=== PATIENT | female | born 1990 | race Caucasian/White ===

== ENCOUNTER 2016-11-02 02:09 | Emergency (ER) | payer BC ==
[~2016-11-02] VITALS: Ht 162.6 cm; Wt 68.2 kg
[~2016-11-02 02:09] MED LIST: BIRTH CONTROL; DESYREL 50MG50 MG PO; NIRAVAM0.25 MG PO; PROZAC 10MG10 MG PO
[2016-11-02 02:11] VITALS: TEMP 98.3
[2016-11-02 03:06] LABS: BASO % 0.6 % (0.0-2.0); EOS # 0.1 (0.0-0.7); GRAN % 60.6 % (42.2-75.2); HEMATOCRIT 43.5 % (37.0-47.0); HEMOGLOBIN 15.2 g/dl (12.5-16.0); LYMPH # 2.2 (1.2-3.4); LYMPH % 32.9 % (20.0-51.0); MEAN CELL VOLUME 90 fl (80.0-100.0); MEAN CORPUSCULAR HEMOGLOBIN 32 pg (27.0-31.0); MEAN CORPUSCULAR HGB CONC 35 g/dl (33.0-37.0); MEAN PLATELET VOLUME 10.4 fl (7.4-10.4); MONO # 0.3 (0.1-0.6); MONO % 4.6 % (1.7-9.3); PLATELET COUNT 190 K/mm3 (130-400); RED BLOOD COUNT 4.81 M/mm3 (4.10-5.30); WHITE BLOOD COUNT 6.7 K/mm3 (4.8-10.8)
[2016-11-02 03:18] LABS: ADJUSTED CALCIUM 8.8 mg/dL (8.4-10.2); ALANINE AMINOTRANSFERASE 24 U/L (9-52); ALBUMIN 3.9 gm/dL (3.5-5.0); ALKALINE PHOSPHATASE 65 U/L (50-136); ANION GAP 12 mmol/L (7-16); BILIRUBIN,TOTAL 0.7 mg/dL (0.0-1.0); BLOOD UREA NITROGEN 5 mg/dL (7-17); CALCIUM 8.7 mg/dL (8.4-10.2); CARBON DIOXIDE 22 mmol/L (22-30); CHLORIDE 106 mmol/L (98-107); CREATININE, serum 0.73 mg/dL (0.52-1.25); GLUCOSE 86 mg/dL (74-106); LIPASE 15 U/L (23-300); SODIUM 140 mmol/L (137-145); TOTAL PROTEIN 6.3 gm/dL (6.4-8.2)
[2016-11-02 03:32] LABS: ACETAMINOPHEN < 10 ug/mL (10-30); SALICYLATE < 1.0 mg/dL
[2016-11-02 03:41] LABS: PH 6 (5-8); SQUAMOUS EPITHELIAL 0-2 /hpf; URINE APPEARANCE Clear; URINE BACTERIA None Seen /hpf; URINE BILIRUBIN Negative (NEGATIVE); URINE BLOOD Negative (NEGATIVE); URINE COLOR Yellow; URINE GLUCOSE Negative (NEGATIVE); URINE KETONE Negative (NEGATIVE); URINE RBC 0-2 /hpf; URINE UROBILINOGEN Negative (NEGATIVE); URINE WBC 0-2 /hpf
[2016-11-02 03:51] LABS: AMPHETAMINE URINE NEGATIVE; BARBITURATES URINE NEGATIVE; BENZODIAZEPINES URINE POSITIVE; BUPRENORPHINE URINE NEGATIVE; METHADONE URINE NEGATIVE; OPIATES URINE NEGATIVE; OXYCODONE URINE NEGATIVE; PHENCYCLIDINE URINE NEGATIVE; PROPOXYPHENE URINE NEGATIVE; THC CANNABINOIDS URINE NEGATIVE
[2016-11-02 13:34] VITALS: BP 115/53; PULSE 87
== END 2016-11-02 14:55 | disposition home or self-care (01) ==
LOC: COL.ER 02:09
PROVIDERS: Emergency Medicine
DX: F32.9 Major depressive disorder, single episode, unspecified (principal); F13.10 Sedative, hypnotic or anxiolytic abuse, uncomplicated; S51.812A Laceration without foreign body of left forearm, initial encounter; S11.91XA Laceration without foreign body of unspecified part of neck, initial encounter; F41.9 Anxiety disorder, unspecified; F50.9 Eating disorder, unspecified; Z23 Encounter for immunization; X78.9XXA Intentional self-harm by unspecified sharp object, initial encounter

== ENCOUNTER 2017-08-24 12:46 | Inpatient (IN) | payer BC, MEDICAID ==
[~2017-08-24] VITALS: Ht 165.1 cm; Wt 86.4 kg
[2017-08-24] VITALS (34 sets, daily range): BP systolic 116–1353; BP diastolic 55–98; PULSE 78–117; TEMP 97.5–97.8
[2017-08-24] MEDS ORDERED: PRENATAL (13:15)
[2017-08-24] MEDS ORDERED: TUMS500 MG (13:16)
[2017-08-24] MEDS ORDERED: TYLENOL PM EXTR1 TA1 PO (13:16)
[2017-08-24 16:48] LABS: HEMOGLOBIN 12.8 g/dl (12.5-16.0); MEAN CELL VOLUME 91 fl (80.0-100.0); MEAN CORPUSCULAR HEMOGLOBIN 32 pg (27.0-31.0); MEAN CORPUSCULAR HGB CONC 35 g/dl (33.0-37.0); MEAN PLATELET VOLUME 11.7 fl (7.4-10.4); PLATELET COUNT 142 K/mm3 (130-400); RED BLOOD COUNT 4.02 M/mm3 (4.10-5.30)
[2017-08-24 16:50] LABS: HEMATOCRIT 36.4 % (37.0-47.0)
[2017-08-24 18:15] LABS: BAND 1 % (0-10); LYMPHOCYTE 19 % (20.0-51.0); NEUTROPHILS 75 % (42.0-75.2); PLATELET ESTIMATE NORMAL (NORMAL)
[2017-08-25] VITALS (38 sets, daily range): BP systolic 102–159; BP diastolic 6–93; PULSE 87–127; TEMP 97.6–100.1
[2017-08-26 07:16] LABS: MEAN CELL VOLUME 91 fl (80.0-100.0); MEAN CORPUSCULAR HGB CONC 35 g/dl (33.0-37.0); PLATELET COUNT 126 K/mm3 (130-400); RED BLOOD COUNT 3.35 M/mm3 (4.10-5.30); REDCELL DISTRIBUTION WIDTH-CV 13.2 % (11.5-14.5)
[2017-08-26 07:20] LABS: HEMATOCRIT 30.4 % (37.0-47.0); HEMOGLOBIN 10.6 g/dl (12.5-16.0); MEAN CORPUSCULAR HEMOGLOBIN 32 pg (27.0-31.0)
[2017-08-26 07:45] VITALS: BP 110/77; PULSE 79; TEMP 97.4
[2017-08-26 08:01] LABS: BAND 19 % (0-10); LYMPHOCYTE 18 % (20.0-51.0); NEUTROPHILS 58 % (42.0-75.2); PLATELET ESTIMATE DECREASED (NORMAL)
[2017-08-26] MEDS ORDERED: PERCOCET 325 MG1 TA2 PO (10:49)
[2017-08-26] MEDS ORDERED: IBU600 MG PO (10:49)
[2017-08-26 16:00] VITALS: BP 125/79; PULSE 85; TEMP 98
[2017-08-26 19:30] VITALS: BP 107/66; PULSE 87; TEMP 98.3
[2017-08-27 08:44] VITALS: BP 118/67; PULSE 83; TEMP 98.2
[2017-08-27] MEDS ORDERED: NEWMANS TOP (11:37)
== END 2017-08-27 13:10 | disposition home or self-care (01) | DRG 767 ==
LOC: LDR 12:46 → LDRO 12:46 → OB 15:05 → LDR 15:05 → OB 08-25 10:30
PROVIDERS: Obstetrics & Gynecology
PROC: 10E0XZZ Delivery of Products of Conception, External Approach (ICD-10-PCS; principal; 2017-08-24)
PROC: 0KQM0ZZ Repair Perineum Muscle, Open Approach (ICD-10-PCS; 2017-08-24)
PROC: 10D17Z9 Manual Extraction of Products of Conception, Retained, Via Natural or Artificial Opening (ICD-10-PCS; 2017-08-24)
DX: O70.1 Second degree perineal laceration during delivery (principal); Z37.0 Single live birth; O72.2 Delayed and secondary postpartum hemorrhage; Z3A.38 38 weeks gestation of pregnancy
CPT/HCPCS: J1200; J2400; J2590; J2795; J7120